=== PATIENT | female | born 1985 | race Caucasian/White ===

== ENCOUNTER 2019-11-14 17:03 | Emergency (ER) | payer OTHER ==
[~2019-11-14] VITALS: Ht 162.6 cm; Wt 55.0 kg
--- NOTE | 2019-11-14 17:23 | PHYS DOC ---
General Adult HPI: HPI: The history was obtained from the patient. Patient is a 33-year-old female with PMH palpitations who presents with a chief complaint of palpitations. Patient states she has felt that her heart rate is fast and skipping a beat for the past hour. She states this started suddenly when getting out of the shower. She notes she has been under increased stress given her home living environment. She states the new neighbors smoke frequently outside and is caused distress between her and her neighbors. She notes she has intermittent palpitations almost daily. She states this episode seemed to occur more frequently and last longer. She notes that she was evaluated for this 2 years ago with a Holter monitor and was told she was throwing premature beats. She does think that she has situational anxiety. She notes that she feels as though she is having a panic attack currently. Denies chest pain or shortness of breath. Denies syncope. Denies any sore thyroid issues. Denies any daily alcohol or drug consumption. Denies any excessive caffeine usage. Denies fevers. No other complaints. Patient denies any history of immobilization greater than 48 hours, recent hospitalizations, recent surgery, recent trauma, , oral contraceptive usage, hormone replacement therapy, air travel greater than 8 hours, recent infectious disease, or general deterioration of their overall condition. (MELINA JAIN DO) Review of Systems: Review of Systems: Constitutional: Denies fever or chills Eyes: Denies change in visual acuity HENT: Denies nasal congestion or sore throat Respiratory: Denies cough or shortness of breath Cardiovascular: Positive for palpitations GI: Denies abdominal pain, nausea, vomiting, bloody stools or diarrhea : Denies dysuria Musculoskeletal: Denies back pain or joint pain Integument: Denies rash Neurologic: Denies headache, focal weakness or sensory changes Endocrine: Denies polyuria or polydipsia Lymphatic: Denies swollen glands Psychiatric: Positive for anxiety (MELINA JAIN DO) Heart Score: Risk Factors: Risk Factors: DM, Current or recent (<one month) smoker, HTN, HLP, family history of CAD, obesity. Risk Scores: Score 0 - 3: 2.5% MACE over next 6 weeks - Discharge Home Score 4 - 6: 20.3% MACE over next 6 weeks - Admit for Clinical Observation Score 7 - 10: 72.7% MACE over next 6 weeks - Early Invasive Strategies (MELINA JAIN DO) Physical Exam: PE: Constitutional: Well developed, well nourished, no acute distress, non-toxic appearance. [] HENT: Normocephalic, atraumatic, bilateral external ears normal, oropharynx moist, no oral exudates, nose normal. [] Eyes: PERRLA, EOMI, conjunctiva normal, no discharge. [] Neck: Normal range of motion, no tenderness, supple, no stridor. [] Cardiovascular tachycardic. Regular rhythm. No murmurs rubs or gallops noted. Lungs & Thorax: Bilateral breath sounds clear to auscultation [] Abdomen: soft, no tenderness, no masses, no pulsatile masses. [] Skin: Warm, dry, no erythema, no rash. [] Back: No tenderness, no CVA tenderness. [] Extremities: No tenderness, no cyanosis, no clubbing, ROM intact, no edema. [] Neurologic: Alert and oriented X 3, normal motor function, normal sensory function, no focal deficits noted. [] Psychologic: Rapid and pressured speech. Anxious appearing. (MELINA JAIN DO) Current Patient Data: Labs: Laboratory Tests Test 11/14/19 17:41 White Blood Count 10.7 x10^3/uL (4.0-11.0) Red Blood Count 5.03 x10^6/uL (3.50-5.40) Hemoglobin 15.5 g/dL (12.0-15.5) Hematocrit 45.9 % (36.0-47.0) Mean Corpuscular Volume 91 fL (79-100) Mean Corpuscular Hemoglobin 31 pg (25-35) Mean Corpuscular Hemoglobin Concent 34 g/dL (31-37) Red Cell Distribution Width 12.9 % (11.5-14.5) Platelet Count 316 x10^3/uL (140-400) Neutrophils (%) (Auto) 77 % (31-73) Lymphocytes (%) (Auto) 18 % (24-48) Monocytes (%) (Auto) 5 % (0-9) Eosinophils (%) (Auto) 0 % (0-3) Basophils (%) (Auto) 0 % (0-3) Neutrophils # (Auto) 8.2 x10^3uL (1.8-7.7) Lymphocytes # (Auto) 1.9 x10^3/uL (1.0-4.8) Monocytes # (Auto) 0.5 x10^3/uL (0.0-1.1) Eosinophils # (Auto) 0.0 x10^3/uL (0.0-0.7) Basophils # (Auto) 0.0 x10^3/uL (0.0-0.2) Sodium Level 138 mmol/L (136-145) Potassium Level 3.5 mmol/L (3.5-5.1) Chloride Level 101 mmol/L (98-107) Carbon Dioxide Level 22 mmol/L (21-32) Anion Gap 15 (6-14) Blood Urea Nitrogen 9 mg/dL (7-20) Creatinine 0.9 mg/dL (0.6-1.0) Estimated GFR (Cockcroft-Gault) 72.1 Glucose Level 100 mg/dL (70-99) Calcium Level 10.5 mg/dL (8.5-10.1) Ethyl Alcohol Level < 10 mg/dL (0-10) Vital Signs: Vital Signs Date Time Temp Pulse Resp B/P (MAP) Pulse Ox O2 Delivery O2 Flow Rate FiO2 11/14/19 18:56 97 16 135/81 (99) 97 Room Air 11/14/19 17:10 98.3 (LIS HOGUE DO) EKG: EKG: EKG consistent with sinus tachycardia. Ventricular rate of 124 bpm. [place] normal. Intervals normal. No acute ischemic changes noted. [] (MELINA JAIN DO) Radiology/Procedures: Radiology/Procedures: [] (MELINA JAIN DO) Course & Med Decision Making: Course & Med Decision Making Pertinent Labs and Imaging studies reviewed. (See chart for details) Patient is a very pleasant 33-year-old female who presents with chief complaint of palpitations. Upon my initial assessment she does appear somewhat anxious. Initial heart rate noted be approximately 120. EKG consistent with sinus tachycardia. She was given oral Ativan in the exam room. On reassessment patient is resting comfortably in the exam with a normal heart rate. Vital signs been stable. At this time labs are pending. Patient states she feels significantly better. This could be related to anxiety. However at this time labs are pending. I do anticipate the patient discharged home with follow-up. I have signed out the patient's emergency department care to Dr. Hogue. We discussed the history, physical exam findings, completed and pending laboratory results and imaging studies. We have also discussed the current treatment plan and expected clinical course. Please refer to chart for the patient's remaining emergency department course, final disposition, and clinical impression(s). (MELINA JAIN DO) Course & Med Decision Making Obtain thorough signout from off going physician Patient seen and examined by myself, I repeated certain aspects of history and physical exam Patient has had extensive cardiac work-up given family history of cardiac disease and younger sibling who has HOCM, she has had negative Holter monitor and echocardiographic studies performed in past 2 years She remains asymptomatic throughout my observation. 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 (MELINA JAIN DO) Departure Departure: Impression: Primary Impression: Palpitations Additional Impression: Anxiousness Disposition: 01 HOME/RESIDENCE PRIOR TO ADM Condition: STABLE Referrals: PCP,KHARI (PCP) Patient Instructions: Anxiety and Panic Attacks, Palpitations Additional Instructions: Please follow-up with your primary care physician in the next 2 to 3 days. Please return emergency department in the next 24 to 40 hours if your symptoms return. Scripts Hydroxyzine Hcl (HYDROXYZINE HCL) 25 Mg Tablet 1 TAB PO TID PRN PRN for ANXIETY, #12 TAB Prov: MELINA JAIN DO 11/14/19 Justification of Admission: Justification of Admission: Justification of Admission Dx: N/A (MELINA JAIN DO) Justification of Admission Dx: N/A (LIS HOGUE DO) MELINA JAIN DO Nov 14, 2019 17:23 LIS HOGUE DO Nov 14, 2019 19:12
--- NOTE | 2019-11-14 17:36 | EKG ---
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
[2019-11-14] MEDS ORDERED: HYDR25TA PO (17:59)
[2019-11-14 18:00] LABS: BASO % 0 % (0-3); EOS % 0 % (0-3); HEMATOCRIT 45.9 % (36.0-47.0); HEMOGLOBIN 15.5 g/dL (12.0-15.5); LYMPH # 1.9 x10^3/uL (1.0-4.8); LYMPH % 18 % (24-48); MEAN CORPUSCULAR HEMOGLOBIN 31 pg (25-35); MEAN CORPUSCULAR HGB CONC 34 g/dL (31-37); MEAN CORPUSCULAR VOLUME 91 fL (79-100); MONO # 0.5 x10^3/uL (0.0-1.1); MONO % 5 % (0-9); NEUT # 8.2 x10^3uL (1.8-7.7); NEUT % 77 % (31-73); PLATELET COUNT 316 x10^3/uL (140-400); RED BLOOD COUNT 5.03 x10^6/uL (3.50-5.40); RED CELL DISTRIBUTION WIDTH 12.9 % (11.5-14.5); WHITE BLOOD COUNT 10.7 x10^3/uL (4.0-11.0)
[2019-11-14] MEDS ORDERED: LORazepam 1 MG TABLET PO ONE (18:00)
[2019-11-14 18:07] LABS: CALCIUM 10.5 mg/dL (8.5-10.1); CREATININE 0.9 mg/dL (0.6-1.0); GFR 72.1; POTASSIUM 3.5 mmol/L (3.5-5.1)
[2019-11-14 18:56] VITALS: BP 135/81
== END 2019-11-14 19:20 | disposition home or self-care (01) ==
LOC: ER 17:03
DX: F41.9 Anxiety disorder, unspecified (principal); R00.2 Palpitations
CPT/HCPCS: 36415; 80048; 85025; 93005; 99284; G0480

== ENCOUNTER 2021-04-20 03:00 | Emergency (ER) | payer OTHER ==
[~2021-04-20] VITALS: Ht 165.1 cm; Wt 64.2 kg
[~2021-04-20 03:00] MED LIST: HYDR25TA PO
--- NOTE | 2021-04-20 03:24 | EKG ---
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
[2021-04-20 03:38] VITALS: BP 113/75
--- NOTE | 2021-04-20 03:39 | PHYS DOC ---
Past History Past Medical History: No Pertinent History Past Surgical History: Tonsillectomy Alcohol Use: Occasionally Adult General Chief Complaint Chief Complaint: RAPID HEART RATE HPI HPI Patient is a 35-year-old female, otherwise healthy who presents with a chief complaint of rapid heart rate. States she was asleep and was not sure she was dreaming or not but woke up in her apple watch said that her heart rate was 120. States it stayed that way for a few minutes and then came back down. Denies any recent travel, traumas, illnesses, fevers, chest pain, shortness of breath, abdominal pain, nausea, vomiting, diarrhea, dysuria, hematuria, blood in the stool. Denies any alcohol or drug use. States that she did have a baby in February and recently, over the last week started sleeping all night with the baby. Denies any Covid/flu/cold symptoms. States she is eating and drinking normally for her. States he is making urine and stool normally for her. Review of Systems Review of Systems Review of systems otherwise unremarkable except noted in HPI Allergies Allergies Allergies Uncoded Allergies Type Severity Reaction Last Updated Verified SULFA Allergy Unknown 11/14/19 Physical Exam Physical Exam Constitutional: Well developed, well nourished, no acute distress, non-toxic appearance. [] HENT: Normocephalic, atraumatic, bilateral external ears normal, oropharynx moist, no oral exudates, nose normal. [] Eyes: PERRLA, EOMI, conjunctiva normal, no discharge. [] Neck: Normal range of motion, no tenderness, supple, no stridor. [] Cardiovascular:Heart rate regular rhythm, no murmur [] Lungs & Thorax: Bilateral breath sounds clear to auscultation [] Abdomen: soft, no tenderness, no masses, no pulsatile masses. [] Skin: Warm, dry, no erythema, no rash. [] Back: No tenderness, no CVA tenderness. [] Extremities: No tenderness, no cyanosis, no clubbing, ROM intact, no edema. [] Neurologic: Alert and oriented X 3, normal motor function, normal sensory function, able to sit, stand and walk without issue no focal deficits noted. [] Psychologic: Affect normal, judgement normal, mood normal. [] EKG EKG [] Radiology/Procedures Radiology/Procedures [] Heart Score C/O Chest Pain: No Risk Factors: Risk Factors: DM, Current or recent (<one month) smoker, HTN, HLP, family history of CAD, obesity. Risk Scores: Risk Factors: DM, Current or recent (<one month) smoker, HTN, HLP, family history of CAD, obesity. Course & Med Decision Making Course & Med Decision Making Patient is a 35-year-old female that presents to the emergency department after waking up, maybe from a dream with her Apple Watch saying that her heart rate was 120, but was otherwise asymptomatic Vital signs not concerning. EKG with a rate of 77, QRS of 82, QTc of 414. Patient alert and oriented no acute distress with no complaints other than the presenting. Discussed findings with patient. Advised to follow-up on Thursday with primary care physician. Gave strict return precautions to the emergency department. Patient grateful, verbalized understanding and agree with plan of discharge Dragon Disclaimer Dragon Disclaimer This electronic medical record was generated, in whole or in part, using a voice recognition dictation system. Departure Departure: Impression: Primary Impression: Anxiousness Additional Impression: Tachycardia, unspecified Disposition: HOME / SELF CARE / HOMELESS Condition: GOOD Referrals: PCP,KHARI (PCP) BELLE GOMES Patient Instructions: Nonspecific Tachycardia Additional Instructions: Thank you for coming into the emergency department tonight and allowing us to take care of you. Please read the attached information carefully to go over things we discussed. As discussed, although your physical exam and EKG here were reassuring and you were asymptomatic here in the emergency department it would be reasonable to follow-up on Thursday with your primary care physician to discuss your ED visit and need for any further evaluation and treatment. Please come back to the emergency department with any of the new or concerning symptoms we discussed. Problem Qualifiers SAE PRADO MD Apr 20, 2021 03:38
== END 2021-04-20 03:50 | disposition home or self-care (01) ==
LOC: ER 03:00
DX: F41.9 Anxiety disorder, unspecified (principal); R00.0 Tachycardia, unspecified; Z88.2 Allergy status to sulfonamides
CPT/HCPCS: 93005; 99283